=== PATIENT | female | born 1935 | race Caucasian/White ===

== ENCOUNTER → 2017-09-25 | Outpatient (CLI) | payer OTHER ==
[~2017-09-25] MED LIST: ALPR0.25 PO; CHOL100012 PO; DENO60DI INJ; OMEG1CAP23 PO
[2017-09-25 12:27] LABS: BASOPHILS # (AUTO) 0.05 x10^3/uL (0-0.1); BASOPHILS % (AUTO) 1 % (0-1); EOSINOPHILS # (AUTO) 0.13 x10^3/uL (0-0.4); EOSINOPHILS % (AUTO) 2 % (1-7); LYMPHOCYTES # (AUTO) 1.92 x10^3/uL (1-3.4); LYMPHOCYTES % (AUTO) 27 % (22-44); MD NO; MEAN CORPUSCULAR HEMOGLOBIN 32.7 pg (27.0-34.8); MEAN CORPUSCULAR HGB CONC 33.7 g/dL (32.4-35.8); MEAN CORPUSCULAR VOLUME 97.2 fL (80-100); MEAN PLATELET VOLUME 8.3 fL (7.4-10.4); MONOCYTES # (AUTO) 0.46 x10^3/uL (0.2-0.8); MONOCYTES % (AUTO) 6 % (2-9); NEUTROPHILS # (AUTO) 4.61 x10^3/uL (1.8-6.8); NEUTROPHILS % (AUTO) 64 % (42-75); PLATELET COUNT 214 x10^3/uL (130-400); RED BLOOD COUNT 4.89 x10^6/uL (3.82-5.3); RED CELL DISTRIBUTION WIDTH 13.8 % (9.6-15.2)
[2017-09-25 12:37] LABS: ANION GAP 7 mmol/L (5-15); CALCIUM 9.3 mg/dL (8.5-10.1); CHLORIDE 104 mmol/L (98-107); CREATININE 0.79 mg/dL (0.55-1.02)
== END | disposition home or self-care (01) ==
LOC: STAR 11:21
PROVIDERS: ATTEND Surgery
DX: Z01.812 Encounter for preprocedural laboratory examination (principal); R79.89 Other specified abnormal findings of blood chemistry
CPT/HCPCS: 36415; 80048; 85025

== ENCOUNTER 2017-09-30 07:35 | Day surgery (SDC) | payer OTHER ==
[~2017-09-30] VITALS: Ht 156.2 cm; Wt 50.5 kg
[2017-09-30 08:02] VITALS: BP 128/82
[2017-09-30] MEDS ORDERED: D5%-0.45% NACL 1,000 ML IV SCH (08:04)
[2017-09-30] MEDS ORDERED: LIDOCAINE 2%, 20ML ONE (08:58)
[2017-09-30] MEDS ORDERED: FENTANYL PF 100 MCG/2ML ONE (09:19)
[2017-09-30] MEDS ORDERED: MIDAZOLAM 1 MG/ML, 2ML ONE ×2 (09:20→09:57)
[2017-09-30] MEDS ORDERED: HEPARIN 1,000 UNITS/ML, 10ML ONE (09:20)
[2017-09-30] MEDS ORDERED: PROTAMINE SULFATE 10 MG/ML, 25ML ONE (09:20)
[2017-09-30] MEDS ORDERED: FLUMAZENIL 0.1 MG/1 ML, 5ML ONE (09:20)
[2017-09-30] MEDS ORDERED: NALOXONE 1 MG/ML, 2ML ONE (09:20)
[2017-09-30] MEDS ORDERED: VISIPAQUE 270 MG/ML, 150ML BOTTLE ONE (11:17)
[2017-09-30] MEDS ORDERED: CLOPIDOGREL 75 MG TABLET PO ONE (12:00)
== END 2017-09-30 15:50 | disposition home or self-care (01) ==
LOC: OUT 07:35
PROVIDERS: ATTEND Surgery
DX: I70.212 Atherosclerosis of native arteries of extremities with intermittent claudication, left leg (principal); Z87.39 Personal history of other diseases of the musculoskeletal system and connective tissue; Z90.49 Acquired absence of other specified parts of digestive tract; Z98.890 Other specified postprocedural states; Z90.710 Acquired absence of both cervix and uterus
CPT/HCPCS: 37236; 75710; 99156; 99157; C1725; C1769; C1876; C1894; J1644; J2250; J2720; J3010; J3490; Q9966; J2310

== ENCOUNTER 2018-05-21 05:43 | Day surgery (SDC) | payer OTHER ==
[2018-05-18 14:56] LABS: BASOPHILS # (AUTO) 0.03 x10^3/uL (0-0.1); BASOPHILS % (AUTO) 1 % (0-1); EOSINOPHILS % (AUTO) 2 % (1-7); LYMPHOCYTES # (AUTO) 1.91 x10^3/uL (1-3.4); LYMPHOCYTES % (AUTO) 32 % (22-44); MD NO; MEAN CORPUSCULAR HGB CONC 33.3 g/dL (32.4-35.8); MEAN CORPUSCULAR VOLUME 96.2 fL (80-100); MEAN PLATELET VOLUME 8.5 fL (7.4-10.4); MONOCYTES # (AUTO) 0.66 x10^3/uL (0.2-0.8); MONOCYTES % (AUTO) 11 % (2-9); NEUTROPHILS # (AUTO) 3.36 x10^3/uL (1.8-6.8); NEUTROPHILS % (AUTO) 56 % (42-75); PLATELET COUNT 193 x10^3/uL (130-400); RED BLOOD COUNT 4.75 x10^6/uL (3.82-5.3); RED CELL DISTRIBUTION WIDTH 14.3 % (9.6-15.2)
[2018-05-18 15:04] LABS: ANION GAP 7 mmol/L (5-15); CHLORIDE 108 mmol/L (98-107); CREATININE 0.79 mg/dL (0.55-1.02)
[~2018-05-21] VITALS: Ht 154.9 cm; Wt 51.4 kg
[~2018-05-21 05:43] MED LIST changes: +ATOR40TA78 PO; +CLOP75TA52 PO; +DIPH25CA61 PO; +FISH1CAP PO; +GLUC1TAB35 PO; +METO25TA35 PO; +lipitor PO
[2018-05-21 06:30] VITALS: BP 193/68
[2018-05-21] MEDS ORDERED: LIDOCAINE-MPF 2%, 2ML ONE (07:02)
[2018-05-21] MEDS ORDERED: D5%-0.45% NACL 1,000 ML IV SCH (07:12)
[2018-05-21] MEDS ORDERED: FENTANYL PF 100 MCG/2ML ONE (07:21)
[2018-05-21] MEDS ORDERED: NITROGLYCERIN 5 MG/ML, 10ML ONE (07:21)
[2018-05-21] MEDS ORDERED: FLUMAZENIL 0.1 MG/1 ML, 5ML ONE (07:21)
[2018-05-21] MEDS ORDERED: MIDAZOLAM 1 MG/ML, 5ML ONE (07:21)
[2018-05-21] MEDS ORDERED: NALOXONE 1 MG/ML, 2ML ONE (07:22)
[2018-05-21] MEDS ORDERED: PROTAMINE SULFATE 10 MG/ML, 25ML ONE (07:22)
[2018-05-21] MEDS ORDERED: HEPARIN 1,000 UNITS/ML, 10ML ONE (07:22)
[2018-05-21] MEDS ORDERED: SODIUM CHLORIDE 0.9% 1,000 ML IV SCH (08:46)
[2018-05-21] MEDS ORDERED: VISIPAQUE 270 MG/ML, 150ML BOTTLE ONE (12:00)
== END 2018-05-21 09:55 | disposition home or self-care (01) ==
LOC: OUT 05:43
PROVIDERS: ATTEND Surgery
DX: S83.251A Bucket-handle tear of lateral meniscus, current injury, right knee, initial encounter (principal); M65.861 Other synovitis and tenosynovitis, right lower leg; F41.9 Anxiety disorder, unspecified; E78.00 Pure hypercholesterolemia, unspecified; E03.9 Hypothyroidism, unspecified; I10 Essential (primary) hypertension; X58.XXXA Exposure to other specified factors, initial encounter; Y93.89 Activity, other specified; Y92.89 Other specified places as the place of occurrence of the external cause; Y99.8 Other external cause status; Z87.39 Personal history of other diseases of the musculoskeletal system and connective tissue; Z90.49 Acquired absence of other specified parts of digestive tract; Z98.890 Other specified postprocedural states; Z90.710 Acquired absence of both cervix and uterus; Z87.891 Personal history of nicotine dependence; Z88.5 Allergy status to narcotic agent; Z88.0 Allergy status to penicillin
CPT/HCPCS: 36140; 36415; 75710; 76937; 80048; 85025; 99156; 99157; C1751; C1769; C1894; J2250; J3010; J3490; Q9966; J1644; J2720; J2310